=== PATIENT | female | born 2000 | race Hispanic/Latino ===

== ENCOUNTER 2021-01-08 19:01 | Emergency (ER) | payer OTHER ==
[2021-01-08] MEDS ORDERED: Ketorolac Tromethamine 30 MG/ML VIAL ONE (19:48)
== END 2021-01-08 20:43 | disposition home or self-care (01) ==
LOC: CSHERS 19:01
DX: S90.01XA Contusion of right ankle, initial encounter (principal); K58.9 Irritable bowel syndrome, unspecified; X50.0XXA Overexertion from strenuous movement or load, initial encounter
CPT/HCPCS: 96372; J1885

== ENCOUNTER 2021-03-03 23:02 | Emergency (ER) | payer OTHER | END 2021-03-03 23:56 | disposition home or self-care (01) | LOC: CSHERS 23:02 | DX: H60.02 Abscess of left external ear (principal); K58.9 Irritable bowel syndrome, unspecified; Z79.899 Other long term (current) drug therapy | CPT/HCPCS: 99282 ==

== ENCOUNTER 2021-03-11 14:24 | Emergency (ER) | payer OTHER | END 2021-03-11 15:55 | disposition left against medical advice (07) | LOC: CSHERS 14:24 | DX: Z53.21 Procedure and treatment not carried out due to patient leaving prior to being seen by health care provider (principal) ==

== ENCOUNTER 2021-10-27 10:58 | Emergency (ER) | payer OTHER | END 2021-10-27 12:22 | disposition home or self-care (01) | LOC: CSHERS 10:58 | DX: N64.4 Mastodynia (principal) | CPT/HCPCS: 99283 ==

== ENCOUNTER 2021-12-06 18:46 | Emergency (ER) | payer OTHER ==
[2021-12-06] MEDS ORDERED: Lidocaine 1% (PF) 30 ML VIAL ONE (20:45)
[2021-12-06] MEDS ORDERED: Ibuprofen 200 MG TAB ONE (21:45)
== END 2021-12-06 21:44 | disposition home or self-care (01) ==
LOC: CSHERS 18:46
DX: S50.351A Superficial foreign body of right elbow, initial encounter (principal); B35.6 Tinea cruris; W45.8XXA Other foreign body or object entering through skin, initial encounter
CPT/HCPCS: 64450; J2001

== ENCOUNTER 2021-12-25 19:39 | Emergency (ER) | payer OTHER ==
[2021-12-25] MEDS ORDERED: Lidocaine 1% (PF) 30 ML VIAL ONE (20:37)
[2021-12-25] MEDS ORDERED: Ketorolac Tromethamine 30 MG/ML VIAL ONE (20:37)
== END 2021-12-25 21:49 | disposition home or self-care (01) ==
LOC: CSHERS 19:39
DX: S40.851A Superficial foreign body of right upper arm, initial encounter (principal); L02.413 Cutaneous abscess of right upper limb; W25.XXXA Contact with sharp glass, initial encounter; Y99.0 Civilian activity done for income or pay
CPT/HCPCS: 10060; 96372; J1885; J2001

== ENCOUNTER 2022-01-07 10:13 | Emergency (ER) | payer OTHER ==
[2022-01-07] MEDS ORDERED: Ibuprofen 200 MG TAB ONE (11:17)
== END 2022-01-07 12:11 | disposition home or self-care (01) ==
LOC: CSHERS 10:13
DX: S60.022A Contusion of left index finger without damage to nail, initial encounter (principal); W23.0XXA Caught, crushed, jammed, or pinched between moving objects, initial encounter